=== PATIENT | female | born 1975 | race Caucasian/White ===

== ENCOUNTER 2016-08-04 21:57 | Emergency (ER) | payer SELFPAY ==
[~2016-08-04] VITALS: Ht 157.5 cm; Wt 84.0 kg
[2016-08-04 22:24] VITALS: Ht 157.5 cm; Wt 84.0 kg
[2016-08-04] MEDS ORDERED: METOCLOPRAMIDE 10 MG INJ IV STA (22:55)
[2016-08-04] MEDS ORDERED: KETOROLAC 30 MG INJ IV STA (22:55)
[2016-08-04] MEDS ORDERED: SOD CHLORIDE 0.9% 1,000 ML IV STA (22:55)
[2016-08-04] MEDS ORDERED: DIPHENHYDRAMINE 50 MG INJ IV STA (22:55)
[2016-08-04 23:34] LABS: ADD SCAN DIFF NO
[2016-08-04 23:37] LABS: BASOPHILS % 0.2 % (0.0-2.0); EOSINOPHILS # 0.1 10^3/ul (0.0-0.5); EOSINOPHILS % 0.6 % (0.0-7.0); HEMATOCRIT 39.9 % (37.0-47.0); HEMOGLOBIN 12.7 g/dl (12.0-16.0); LYMPHOCYTES # 2.5 10^3/ul (0.8-2.9); LYMPHOCYTES % 23.2 % (15.0-51.0); MEAN CORPUSCULAR HEMOGLOBIN 30.4 pg (29.0-33.0); MEAN CORPUSCULAR HGB CONC 31.8 g/dl (32.0-37.0); MEAN CORPUSCULAR VOLUME 95.5 fl (82.0-101.0); MEAN PLATELET VOLUME 10.6 fl (7.4-10.4); MONOCYTE # 0.5 10^3/ul (0.3-0.9); MONOCYTES % 4.6 % (0.0-11.0); NEUTROPHIL # 7.8 10^3/ul (1.6-7.5); NEUTROPHILS % 71.1 % (39.0-77.0); PLATELET COUNT 324 10^3/UL (140-415); RED BLOOD COUNT 4.18 10^6/ul (4.20-5.40); RED CELL DISTRIBUTION WIDTH 13.2 % (11.5-14.5); WHITE BLOOD COUNT 10.9 10^3/ul (4.8-10.8)
[2016-08-04 23:49] LABS: INR 0.88; PROTIME 11.9 Sec (12.2-14.2); PT RATIO 0.9
[2016-08-04 23:49] LABS: ADD UMIC YES; URINE BILIRUBIN (Dip) NEGATIVE (NEGATIVE); URINE BLOOD (Dip) 3+ (NEGATIVE); URINE COLOR LT. YELLOW (YELLOW); URINE GLUCOSE (Dip) NEGATIVE (NEGATIVE); URINE KETONES (Dip) NEGATIVE (NEGATIVE); URINE LEUKOCYTE ESTERASE (Dip) TRACE (NEGATIVE); URINE NITRITE (Dip) NEGATIVE (NEGATIVE); URINE TOTAL PROTEIN (Dip) NEGATIVE (NEGATIVE); URINE UROBILINOGEN (Dip) 0.2 E.U./dL (0.1-1.0)
[2016-08-04 23:50] LABS: ALBUMIN 4.6 g/dl (3.3-4.9); PARTIAL THROMBOPLASTIN TIME 26.2 Sec (25.0-35.0)
[2016-08-04 23:51] LABS: POTASSIUM 3.6 mmol/L (3.5-5.1)
[2016-08-04 23:53] LABS: ALBUMIN/GLOBULIN RATIO 1.15; BILIRUBIN,INDIRECT 0.2 mg/dl (0-1.1); BILIRUBIN,TOTAL 0.2 mg/dl (0.2-1.3); CREATININE 0.66 mg/dl (0.44-1.00); TOTAL PROTEIN 8.6 g/dl (6.1-8.1)
[2016-08-04 23:54] LABS: CALCIUM 9.1 mg/dl (8.4-10.2)
[2016-08-05 00:05] LABS: BACTERIA,URINE FEW
[2016-08-05 00:06] LABS: MUCUS,URINE FEW; SQUAMOUS EPITHELIAL CELL,UR MANY
--- NOTE | 2016-08-05 00:13 | RADRPT ---
PROCEDURE: CT brain without contrast CLINICAL INDICATION: Left-sided numbness TECHNIQUE: A CT of the brain was performed utilizing axial sections from the skull base through th e vertex without contrast. Sagittal and coronal images were also reformatted. The exam CTDIvol = 44. 52 mGy and DLP = 720.23 mGy-cm. COMPARISON: None available FINDINGS: No acute intracranial hemorrhage is identified. There is no mass effect or midline shift. No extra -axial fluid collection is seen. The ventricles and sulci are within normal limits for size and con figuration. The density of the brain is within normal limits. Alicia-white differentiation is preser jon. The osseous structures are unremarkable. The mastoid air cells and visualized paranasal sinuses are clear. RPTAT:HJJR IMPRESSION: Unremarkable noncontrast CT of the brain. Physician James Date Time Electronically viewed and signed by Physician James on 08/05/2016 00:12 /
[2016-08-05] MEDS ORDERED: MECL12.574 PO (00:46)
[2016-08-05] MEDS ORDERED: NAPR-260 PO (00:46)
--- NOTE | 2016-08-05 00:55 | ERD ---
ER Documentation Chief Complaint Date/Time DATE: 08/05/16 TIME: 00:52 Chief Complaint Pt c/o headache and L arm numbness since 1600 HPI This is a 41-year-old female presents to the ER with complaints. Patient states that this morning she woke up with a headache that is left-sided and radiates to her left neck and shoulder. He states that her entire left arm is unknown. Is also complaining of dizziness. She feels as if she is going to fall down. Patient denies any nausea or vomiting. She denies any head trauma. She denies any chest pain shortness of breath. Patient denies any cough or cold symptoms. She denies any fevers or chills. ROS 12 point review of systems was done, all negative except per HPI. Medications Home Meds Active Scripts Meclizine Hcl* (Antivert*) 12.5 Mg Tab, 12.5 MG PO Q6H Y for DIZZINESS, #20 TAB Prov:ZOFIA BRANDONNA C 08/05/16 Naproxen* (Naprosyn*) 500 Mg Tablet, 500 MG PO BID Y for PAIN AND/OR INFLAMMATION, #30 TAB Prov:ALEKSANDRJANETH C 08/05/16 PMhx/Soc Medical and Surgical Hx: pt denies Medical Hx History of Surgery: Yes (APPY, RIGHT OVARY SX) Hx Miscellaneous Medical Probl: Yes (MIGRANE ) Hx Alcohol Use: No Hx Substance Use: No Hx Tobacco Use: No Smoking Status: Never smoker Physical Exam Vitals Vital Signs Date Time Temp Pulse Resp B/P Pulse Ox O2 Delivery O2 Flow Rate FiO2 08/04/16 22:24 98.3 95 20 150/77 100 Physical Exam GENERAL: The patient is well developed and appropriate for usual state of health , in no apparent distress. HEENT: Atraumatic. Conjunctivae are pink. Pupils equal, round, and reactive to light. Extraocular muscles are grossly intact. No nystagmus. Bilateral tympanic membranes are clear with no evidence of erythema, bulging or perforation. NECK: C-spine is soft and supple. There is no cervical lymphadenopathy. CHEST: Clear to auscultation bilaterally. There are no rales, wheezes or rhonchi. HEART: Regular rate and rhythm. No murmurs, clicks, rubs or gallops. EXTREMITIES: Equal pulses bilaterally. There is no peripheral clubbing, cyanosis or edema. No focal swelling or erythema. Full range of motion. Grossly neurovascularly intact. NEURO: Alert and oriented. Cranial nerves II through XII are intact. Motor strength in all 4 extremities with 5/5 strength. Sensation grossly intact. Normal speech and gait. Negative Rhomberg. +2 DTRs. SKIN: There is no apparent rash or petechia. The skin is warm and dry. Result Diagram: 08/04/16 3581 08/04/160 Results 24 hrs Laboratory Tests Test 08/04/16 23:18 08/04/16 23:20 08/04/16 23:28 Urine Color LT. YELLOW Urine Clarity CLEAR Urine pH 7.0 Urine Specific [place] 1.010 Urine Ketones NEGATIVE Urine Nitrite NEGATIVE Urine Bilirubin NEGATIVE Urine Urobilinogen 0.2 E.U./dL Urine Leukocyte Esterase TRACE Urine Microscopic RBC 10-25/HPF Urine Microscopic WBC 5-10/HPF Urine Squamous Epithelial Cells MANY Urine Bacteria FEW Urine Mucus FEW Urine Hemoglobin 3+ Urine Glucose NEGATIVE% Urine Total Protein NEGATIVE Prothrombin Time 11.9Sec Prothrombin Time Ratio 0.9 INR International Normalized Ratio 0.88 Activated Partial Thromboplast Time 26.2Sec Sodium Level 139mmol/L Potassium Level 3.6mmol/L Chloride Level 101mmol/L Carbon Dioxide Level 29mmol/L Anion Gap 13 Blood Urea Nitrogen 13mg/dl Creatinine 0.66mg/dl Glucose Level 107mg/dl Calcium Level 9.1mg/dl Total Bilirubin 0.2mg/dl Direct Bilirubin 0.00mg/dl Indirect Bilirubin 0.2mg/dl Aspartate Amino Transf (AST/SGOT) 24IU/L Alanine Aminotransferase (ALT/SGPT) 24IU/L Alkaline Phosphatase 91IU/L Total Protein 8.6g/dl Albumin 4.6g/dl Globulin 4.00g/dl Albumin/Globulin Ratio 1.15 White Blood Count 10.910^3/ul Red Blood Count 4.1810^6/ul Hemoglobin 12.7g/dl Hematocrit 39.9% Mean Corpuscular Volume 95.5fl Mean Corpuscular Hemoglobin 30.4pg Mean Corpuscular Hemoglobin Concent 31.8g/dl Red Cell Distribution Width 13.2% Platelet Count 20519^3/UL Mean Platelet Volume 10.6fl Neutrophils % 71.1% Lymphocytes % 23.2% Monocytes % 4.6% Eosinophils % 0.6% Basophils % 0.2% Nucleated Red Blood Cells % 0.0/100WBC Neutrophils # 7.810^3/ul Lymphocytes # 2.510^3/ul Monocytes # 0.510^3/ul Eosinophils # 0.110^3/ul Basophils # 0.010^3/ul Nucleated Red Blood Cells # 0.010^3/ul Current Medications Medications (Trade) Dose Ordered Sig/Bárbara Route PRN Reason Start Time Stop Time Status Last Admin Dose Admin Sodium Chloride (NS) 1,000 ml @ 1,000 mls/hr Q1H STAT IV 08/04/16 22:55 08/04/16 23:54 DC 08/04/16 23:30 Metoclopramide HCl (Reglan) 10 mg ONCE STAT IV 08/04/16 22:55 08/04/16 22:57 DC 08/04/16 23:31 Ketorolac Tromethamine (Toradol) 30 mg ONCE STAT IV 08/04/16 22:55 08/04/16 22:57 DC 08/04/16 23:31 Diphenhydramine HCl (Benadryl) 25 mg ONCE STAT IV 08/04/16 22:55 08/04/16 22:57 DC 08/04/16 23:30 Procedures/MDM Differential Diagnosis includes but is not limited to; Benign positional vertigo , labyrinthitis, vertigo, MS, acoustic neuroma, arrhythmia, anemia, hypoglycemia , infection, dehydration, tension headache, migraine headache, cluster headache , sinus headache, nonspecific febrile headache, trigeminal neurologia, subdural hematoma, subarachnoid bleeding, meningitis, encephalitis. Patient is neurologically intact with no focal neurological deficits. At this time patient has multiple complaints. Suspicion for any acute emergent etiology is low. Patient's EKG was normal as read by Dr. Aparicio 78 bpm no elevation no T wave inversion. There is no evidence of electrolyte abnormality, anemia, infection. CT imaging was normal. Patient be sent home with naproxen with meclizine. Patient is to follow-up with her primary care doctor within 1-2 days return to ER sooner symptoms worsen. My medical decision making sure with the patient she understands and agrees with plan. Departure Diagnosis: Primary Impression: Dizziness Additional Impression: Headache Condition: Stable Patient Instructions: Possible Causes of Dizziness or Fainting Additional Instructions: Jacek baird doctor WILVERANA y rudy clay HENRIK PARA DENTRO DE 1-2 TONG.Dgale a la secretaria que nosotros le instruimos hacer esta henrik.Avise o llame si martinez condicin se empeora antes de la henrik. Regresa aqui si peor o no mejor. JANETH BRANDON Aug 05, 2016 00:55
[2016-08-05 01:00] VITALS: BP 113/55; PULSE 68; RESP 18; TEMP 98.3
== END 2016-08-05 01:02 | disposition home or self-care (01) ==
LOC: FTE 21:57
DX: R42 Dizziness and giddiness (principal)
CPT/HCPCS: 36415; 70450; 80053; 81001; 85025; 85610; 85730; 93005; 96374; 96375; 99285; J1200; J1885; J2765; J7030; 81003